=== PATIENT | female | born 2000 ===

== ENCOUNTER 2021-04-08 21:42 | Observation (INO) | payer BC ==
[2021-04-08] MEDS ORDERED: Methylergonovine 0.2 MG/1 ML Amp IM PRN (22:34)
[2021-04-08] MEDS ORDERED: Butorphanol 1 MG/ML SDV IVPUSH PRN (22:34)
[2021-04-08] MEDS ORDERED: Water For Irrigation,Sterile 1,000 ML Container IRR PRN (22:34)
[2021-04-08] MEDS ORDERED: Carboprost Tromethamine 250 MCG/1 ML Amp IM PRN (22:34)
[2021-04-08] MEDS ORDERED: Sodium Chloride 0.9% 10 ML SDV IV PRN (22:34)
[2021-04-08] MEDS ORDERED: Sodium Chloride 0.9% 2.5 ML Syringe FLUSH PRN (22:34)
[2021-04-08] MEDS ORDERED: Lidocaine 1% 50 ML MDV INJECT PRN (22:34)
[2021-04-08] MEDS ORDERED: Sodium Chloride 0.9% 10 ML Syringe FLUSH PRN (22:34)
[2021-04-08] MEDS ORDERED: Ondansetron 4 MG/2 ML SDV IVPUSH PRN (22:34)
[2021-04-08] MEDS ORDERED: Nalbuphine 10 MG/1 ML Vial IVPUSH PRN (22:34)
[2021-04-08] MEDS ORDERED: Misoprostol 200 MCG Tab PO PRN (22:34)
[2021-04-08] MEDS ORDERED: Tranexamic Acid 1,000 MG in Sodium Chloride 0.9% 100 ML IV PRN (22:34)
[2021-04-08] MEDS ORDERED: Oxytocin/0.9 % Sodium Chloride 30 UNIT/500 ML BAG IV SCH (22:45)
[2021-04-08] MEDS: Lactated Ringers 1,000 ML IV SCH (23:32)
[2021-04-08] MEDS: Misoprostol 100 MCG Tab VAG PRN (23:33)
[2021-04-09] MEDS: Misoprostol 100 MCG Tab VAG PRN (03:37)
[2021-04-09] MEDS: Lactated Ringers 1,000 ML IV SCH (06:16)
[2021-04-09] MEDS ORDERED: Misoprostol 200 MCG Tab ONE (07:16)
--- NOTE | 2021-04-09 08:17 | OR ---
SURGEON: Tanesha Kimble M.D. DATE OF PROCEDURE: 04/08/2021 PREOPERATIVE DIAGNOSIS: 17-week intrauterine demise. POSTOPERATIVE DIAGNOSIS: 17-week intrauterine demise. PROCEDURE: Cytotec induction of labor with delivery of fetus and placenta. ANESTHESIA: None. ESTIMATED BLOOD LOSS: Less than 100 mL. FINDINGS: The fetus passed. There was some skin breakdown on the back, neck, and arms. The fetus appeared to be a female. The eyes were sealed. The anterior abdomen appeared normal. The spine and back appeared normal. The frontal bones were developed. The posterior portion of the skull was not developed and there was open splaying at the back of the head with fluid tissue overlying consistent with the known cystic hygroma, but also appearance of an upper neural tube defect, not complete anencephaly as frontal portion of the head appeared intact. The placenta delivered spontaneously and appeared to be intact, but quite small. Therefore, ultrasound will be obtained to rule out any retained products. There were no perineal lacerations. No vaginal bleeding. Grief assistance was provided through the nursing staff and was provided to the parents. We will attempt to obtain chromosomes. However, I explained to the parents that given the somewhat macerated tissue, I am not certain that the chromosomes will be able to be obtained. WILLARD / ANA CRISTINA /[id number]
[2021-04-09] MEDS ORDERED: Propofol 200 MG/20 ML SDV ONE (08:42)
[2021-04-09] MEDS ORDERED: Midazolam 1 MG/ML 2 ML SDV ONE (08:42)
[2021-04-09] MEDS ORDERED: fentaNYL 250 MCG/5 ML SDV ONE (08:43)
[2021-04-09] MEDS ORDERED: Rocuronium Bromide 50 MG/5 ML Syringe ONE (08:44)
[2021-04-09] MEDS ORDERED: Dexamethasone 4 MG/ML 5 ML MDV ONE (08:44)
[2021-04-09] MEDS ORDERED: Succinylcholine/Sod PF 100 MG/5 ML SYRINGE IV ONE (08:44)
[2021-04-09] MEDS ORDERED: Ondansetron 4 MG/2 ML SDV ONE (08:44)
[2021-04-09] MEDS ORDERED: Lactated Ringers 1,000 ML IV SCH (08:45)
[2021-04-09] MEDS ORDERED: Methylergonovine 0.2 MG/1 ML Amp ONE (08:48)
[2021-04-09] MEDS ORDERED: ceFAZolin 1 GM in Premix Bag 1 BAG IV ONE (09:00)
[2021-04-09] MEDS ORDERED: ceFAZolin 1 GM Vial ONE (09:01)
[2021-04-09] MEDS ORDERED: Sodium Chloride 0.9% 20 ML ONE (09:01)
--- NOTE | 2021-04-09 09:05 | PCM.PREANE ---
Preanesthetic Assessment - Anesthesia/Transfusion/Family Hx Anesthesia History: No Prior Anesthesia Family History of Anesthesia Reaction: No - Review of Systems General: No Symptoms Pulmonary: No Symptoms Cardiovascular: No Symptoms Gastrointestinal: No Symptoms Neurological: No Symptoms Other: Reports: None - Physical Assessment NPO Status Date: 04/09/21 NPO Status Time: 00:01 Vital Signs: Last Vital Signs Temp 98.4 F 04/08/21 22:34 Pulse Resp 18 04/08/21 22:34 BP Pulse Ox Height: 5 ft 4 in Weight: 155 lb ASA Class: 2E Mental Status: Alert & Oriented x3 Airway Class: Mallampati = 2 Dentition: Reports: Normal Dentition ROM/Head Extension: Full Lungs: Clear to Auscultation, Normal Respiratory Effort Cardiovascular: Regular Rate, Regular Rhythm - Lab Values: Laboratory Last Values WBC 9.60 K/uL (4.0-11.0) 04/08/21 23:20 RBC 4.33 M/uL (4.30-5.90) 04/08/21 23:20 Hgb 13.3 g/dL (12.0-16.0) 04/08/21 23:20 Hct 38.5 % (36.0-46.0) 04/08/21 23:20 MCV 88.9 fL (80.0-98.0) 04/08/21 23:20 MCH 30.7 pg (27.0-32.0) 04/08/21 23:20 MCHC 34.5 g/dL (31.0-37.0) 04/08/21 23:20 RDW Std Deviation 42.2 fl (28.0-62.0) 04/08/21 23:20 RDW Coeff of Daniel 13 % (11.0-15.0) 04/08/21 23:20 Plt Count 262 K/uL (150-400) 04/08/21 23:20 MPV 9.70 fL (7.40-12.00) 04/08/21 23:20 Nucleated RBC % 0.0 /100WBC 04/08/21 23:20 Nucleated RBCs # 0 K/uL 04/08/21 23:20 SARS-CoV-2 RNA (ROSS) NEGATIVE (NEGATIVE) 04/08/21 23:25 Blood Type A POSITIVE 04/09/21 00:16 Antibody Screen NEGATIVE 04/09/21 00:16 - Allergies Allergies/Adverse Reactions: Allergies Allergy/AdvReac Type Severity Reaction Status Date / Time No Known Allergies Allergy Verified 04/09/21 02:38 - Anesthesia Plan Pre-Op Medication Ordered: None - Acknowledgements Anesthesia Type Planned: General Anesthesia Pt an Appropriate Candidate for the Planned Anesthesia: Yes Alternatives and Risks of Anesthesia Discussed w Pt/Guardian: Yes Pt/Guardian Understands and Agrees with Anesthesia Plan: Yes Additional Comments: ice chips during the night, no food 16 wk demise with some bleeding no cv problems par no questions PreAnesthesia Questionnaire HEENT History: Reports: Impaired Vision Other HEENT History: glasses Musculoskeletal History: Reports: Other (See Below) Other Musculoskeletal History: Scoliosis - Past Surgical History HEENT Surgical History: Reports: None Musculoskeletal Surgical History: Reports: None Dermatological Surgical History: Reports: None - CURRENT (IN HOUSE) MEDS Current Meds: Current Medications Butorphanol Tartrate (Butorphanol 1 Mg/Ml Sdv) 1 mg IVPUSH Q1H PRN PRN Reason: Pain Carboprost Tromethamine (Carboprost Tromethamine 250 Mcg/1 Ml Amp) 250 mcg IM ASDIRECTED PRN PRN Reason: Post Hemorrhage Oxytocin/Sodium Chloride (Oxytocin 30 Unit/500 Ml-Ns) 30 unit in 500 mls @ 999 mls/hr IV TITRATE [facility] Tranexamic Acid 1,000 mg/ (Sodium Chloride) 110 mls @ 660 mls/hr IV ONETIME PRN PRN Reason: Bleeding Lactated Ringer's (Ringers, Lactated) 1,000 mls @ 150 mls/hr IV ASDIRECTED [facility] Last Admin: 04/09/21 06:16 Dose: 150 mls/hr Documented by: Lactated Ringer's (Ringers, Lactated) 1,000 mls @ 125 mls/hr IV Q8H [facility] Cefazolin Sodium/Dextrose 1 gm (/ Premix) 50 mls @ 100 mls/hr IV ONETIME ONE Stop: 04/09/21 09:29 Lidocaine HCl (Lidocaine 1% 50 Ml Mdv) 50 ml INJECT ONETIME PRN PRN Reason: Laceration repair Methylergonovine Maleate (Methylergonovine 0.2 Mg/1 Ml Amp) 0.2 mg IM ASDIRECTED PRN PRN Reason: Post Hemorrhage Misoprostol (Misoprostol 200 Mcg Tab) 200 mcg PO ONETIME PRN PRN Reason: Post Hemorrhage Misoprostol (Misoprostol 100 Mcg Tab) 600 mcg VAG Q4HR PRN PRN Reason: cervical ripening Last Admin: 04/09/21 03:37 Dose: 600 mcg Documented by: Nalbuphine HCl (Nalbuphine 10 Mg/1 Ml Vial) 10 mg IVPUSH Q1H PRN PRN Reason: Pain (severe 7-10) Last Admin: 04/09/21 04:23 Dose: 10 mg Documented by: Ondansetron HCl (Ondansetron 4 Mg/2 Ml Sdv) 4 mg IVPUSH Q4H PRN PRN Reason: Nausea/Vomiting Sodium Chloride (Sodium Chloride 0.9% 10 Ml Syringe) 10 ml FLUSH ASDIRECTED PRN PRN Reason: Keep Vein Open Sodium Chloride (Sodium Chloride 0.9% 2.5 Ml Syringe) 2.5 ml FLUSH ASDIRECTED PRN PRN Reason: Keep Vein Open Sodium Chloride (Sodium Chloride 0.9% 10 Ml Sdv) 10 ml IV ASDIRECTED PRN PRN Reason: IV Use Sterile Water (Water For Irrigation,Sterile 1,000 Ml Container) 1,000 ml IRR ASDIRECTED PRN PRN Reason: delivery Discontinued Medications Dexamethasone (Dexamethasone 4 Mg/Ml 5 Ml Mdv) Confirm Administered Dose 20 mg .ROUTE .STK-MED ONE Stop: 04/09/21 08:45 Fentanyl (Fentanyl 250 Mcg/5 Ml Sdv) Confirm Administered Dose 250 mcg .ROUTE .STK-MED ONE Stop: 04/09/21 08:44 Methylergonovine Maleate (Methylergonovine 0.2 Mg/1 Ml Amp) Confirm Administered Dose 0.2 mg .ROUTE .STK-MED ONE Stop: 04/09/21 08:49 Midazolam HCl (Midazolam 1 Mg/Ml 2 Ml Sdv) Confirm Administered Dose 2 mg .ROUTE .STK-MED ONE Stop: 04/09/21 08:43 Misoprostol (Misoprostol 200 Mcg Tab) Confirm Administered Dose 600 mcg .ROUTE .STK-MED ONE Stop: 04/09/21 07:17 Ondansetron HCl (Ondansetron 4 Mg/2 Ml Sdv) Confirm Administered Dose 4 mg .ROUTE .STK-MED ONE Stop: 04/09/21 08:45 Propofol (Propofol 200 Mg/20 Ml Sdv) Confirm Administered Dose 200 mg .ROUTE .STK-MED ONE Stop: 04/09/21 08:43 Rocuronium [place] (Rocuronium [place] 50 Mg/5 Ml Syringe) Confirm Administered Dose 50 mg .ROUTE .STK-MED ONE Stop: 04/09/21 08:45
--- NOTE | 2021-04-09 09:53 | US ---
Indication: Status post delivery of a demise. Look for retained products of conception. Technique: 2D grayscale and color Doppler imaging was performed of the uterus. Findings: The initial sonographic images demonstrate a 3 cm placental fragment within apposition of the endometrial lining with no evidence of suspicious soft-tissue which would indicate retained products of conception. Dictated by Nic Mcmahon MD @ 04/09/2021 9:51:[address] Nic Mcmahon @ Apr 09 2021 9:51AM
--- NOTE | 2021-04-09 11:16 | PCM.POSTAN ---
POST ANESTHESIA ASSESSMENT - MENTAL STATUS Mental Status: Alert (no anesthetic problems), Oriented - VITAL SIGNS Vital Signs: Last Vital Signs Temp 97.3 F 04/09/21 09:28 Pulse 118 H 04/09/21 09:48 Resp 22 H 04/09/21 09:48 BP 111/54 L 04/09/21 09:48 Pulse Ox 95 04/09/21 09:48 - RESPIRATORY Respiratory Status: Respiratory Rate WNL, Airway Patent, O2 Saturation Stable - CARDIOVASCULAR CV Status: Pulse Rate WNL, Blood Pressure Stable - GASTROINTESTINAL GI Status: No Symptoms - POST OP HYDRATION Hydration Status: Adequate & Stable
--- NOTE | 2021-04-09 11:44 | OR ---
SURGEON: Tanesha Kimble M.D. DATE OF PROCEDURE: 04/08/2021 PREOPERATIVE DIAGNOSIS: Retained products of conception. POSTOPERATIVE DIAGNOSIS: Retained products of conception. PROCEDURE: Suction D and C. PRIMARY SURGEON: Tanesha Kimble M.D. ANESTHESIA: General endotracheal. FLUIDS: 500 mL of crystalloid. ESTIMATED BLOOD LOSS: 20 mL. FINDINGS: Uterus sounded to 10 cm. Moderate amount of placental tissue removed. COMPLICATIONS: None known. DISPOSITION: Stable to Recovery. BRIEF HISTORY: This is a 20-year-old female. She suffered a 17-week demise, which delivered spontaneously vaginally after 2 doses of Cytotec and the placenta also delivered. However, I could not confirm that the placenta was completely intact. Therefore, an ultrasound was obtained, which showed retained products of conception. She did allow me to attempt to remove the placenta with the ring forceps in the delivery room with ultrasound guidance. However, the placenta was macerated and came out in small pieces, and I could not confirm that I would remove all the tissue with ring forceps. Therefore, I did obtain consent to proceed with a suction D and C with risks discussed including bleeding, infection, uterine perforation, injury to surrounding organs, and thromboembolic event. Understanding these risks, she does desire to proceed. DESCRIPTION OF PROCEDURE: With the patient in dorsal lithotomy position, under adequate general endotracheal anesthesia, the perineum and vagina were prepped with Betadine and draped in usual fashion for vaginal surgery. SCDs were in place. The bladder had been drained with a red Ford catheter, and an appropriate time-out was held. She had received a gram of Ancef IV. After speculum was placed in the vagina and under ultrasound guidance, the 12 mm straight suction curette was placed to the uterine fundus and retracted while repetitively turning and a moderate amount of tissue was obtained with the first pass. Two additional passes were taken, and under ultrasound guidance, it was apparent that all the tissue was removed. There was minimal bleeding. All the instruments were removed from the vagina. Final sponge, needle, and instrument counts were correct. There were no known complications. The patient was transferred to Recovery in good condition. WILLARD / ANA CRISTINA /[id number]
--- NOTE | 2021-04-09 11:49 | PCM48HPAN ---
Post Anesthesia Note - EVALUATION WITHIN 48HRS OF ANESTHETIC Vital Signs in Normal Range: Yes Patient Participated in Evaluation: Yes Respiratory Function Stable: Yes Airway Patent: Yes Cardiovascular Function Stable: Yes Hydration Status Stable: Yes Pain Control Satisfactory: Yes Nausea and Vomiting Control Satisfactory: Yes Mental Status Recovered: Yes Vital Signs: Last Vital Signs Temp 97.3 F 04/09/21 09:28 Pulse 118 H 04/09/21 09:48 Resp 22 H 04/09/21 09:48 BP 111/54 L 04/09/21 09:48 Pulse Ox 95 04/09/21 09:48
== END 2021-04-09 12:45 | disposition home or self-care (01) ==
LOC: MW.OBCHECK 21:42 → MW.OB 21:44 → MW.OBCHECK 22:33 → MW.OB 22:34
PROVIDERS: ADMIT Obstetrics & Gynecology; ATTEND Obstetrics & Gynecology
DX: O02.1 Missed abortion (principal); Z3A.17 17 weeks gestation of pregnancy; Z01.812 Encounter for preprocedural laboratory examination; Z20.822 Contact with and (suspected) exposure to COVID-19
CPT/HCPCS: 36415; 59409; 76857; 76857-26; 85027; 86850; 86900; 86901; 88305; 96374; A9270-GY; G0378; J0330; J0690; J1100; J2210; J2250; J2300; J2405; J2704; J3010; J7120; U0002